=== PATIENT | female | born 1980 | race Caucasian/White ===

== ENCOUNTER 2016-08-05 19:27 | Emergency (ER) | payer BC ==
[2016-08-05 20:59] LABS: HEMOGLOBIN 12.8 gm/dl (12.3-15.3); RED BLOOD COUNT 4.76 M/UL (4.00-5.10); WHITE BLOOD COUNT 7.4 K/UL (4.5-11.0)
[2016-08-05 21:26] LABS: BUN/CREATININE RATIO 14 (0-10)
== END 2016-08-05 22:30 | disposition home or self-care (01) ==
LOC: ER1 19:27
PROVIDERS: Emergency Medicine
DX: Q05.4 Unspecified spina bifida with hydrocephalus (principal); R00.2 Palpitations; E03.9 Hypothyroidism, unspecified
CPT/HCPCS: 36415; 70450; 71010; 80053; 82550; 82553; 83605; 83735; 83874; 84443; 84484; 85025; 87040; 93005; 99284